=== PATIENT | female | born 1965 | race Caucasian/White ===

== ENCOUNTER 2018-11-28 03:02 | Emergency (ER) | payer OTHER | END 2018-11-28 04:11 | disposition home or self-care (01) | LOC: FTE 03:02 | DX: S00.96XA Insect bite (nonvenomous) of unspecified part of head, initial encounter (principal); L08.9 Local infection of the skin and subcutaneous tissue, unspecified; W57.XXXA Bitten or stung by nonvenomous insect and other nonvenomous arthropods, initial encounter; Y92.9 Unspecified place or not applicable | CPT/HCPCS: 99283; Z7502 ==